=== PATIENT | male | born 1995 | race Caucasian/White ===

== ENCOUNTER 2019-08-15 06:58 | Emergency (ER) | payer BC, OTHER ==
[~2019-08-15] VITALS: Ht 182.9 cm; Wt 68.0 kg
[2019-08-15 07:17] VITALS: BP 134/61
--- NOTE | 2019-08-15 07:22 | NUR ---
PT AMB TO BED 9 WITH STEADY GAIT
--- NOTE | 2019-08-15 07:27 | NUR ---
C/O ANXIETY AFTER USING NEW WEED PEN YESTERDAY FOR HIS BIRTHDAY. PT STATES HE USUALLY SMOKES WEED BUT TYPICALLY DOESNT HAVE ANXIETY AFFTER. PT STATES HE FEELS LIKE HE IS HAVING PALPATIONS. HR 77. RR EVEN AND UNLABORED. PT ALERT AND AWAKE. VS STABLE. DENIES PMH
--- NOTE | 2019-08-15 07:30 | NUR ---
DR TAYLOR AT BEDSIDE
--- NOTE | 2019-08-15 07:48 | NUR ---
Patient discharged with v/s stable. Written and verbal after care instructions given and explained. Patient verbalized understanding. Ambulatory with steady gait. All questions addressed prior to discharge. Advised to follow up with PMD.
== END 2019-08-15 07:48 | disposition home or self-care (01) ==
LOC: MED 06:58
DX: F41.9 Anxiety disorder, unspecified (principal); F12.90 Cannabis use, unspecified, uncomplicated; F17.200 Nicotine dependence, unspecified, uncomplicated
CPT/HCPCS: 99281

== ENCOUNTER 2019-08-16 01:36 | Emergency (ER) | payer OTHER ==
[~2019-08-16] VITALS: Ht 172.7 cm; Wt 81.6 kg
[2019-08-16 01:45] VITALS: BP 126/76
--- NOTE | 2019-08-16 01:45 | NUR ---
PT TAKEN TO BED 7
--- NOTE | 2019-08-16 02:01 | NUR ---
24 Y/O M C/O ANIXETY AFTER SMOKING MARIJUANA ON SATURDAY. PT STATED HE STARTED SMOKING MARIJUANA LAST YEAR. PT HAS BEEN HAVING PANIC EPISODES AND ANXIETY SINCE SMOKING A "PEN" ON SATURDAY. LUNG SOUNDS CLEAR TO AUSCULATION. ABD SOFT, NON TENDER. VSS. PMH: NONE ALLERIGES: NKA
--- NOTE | 2019-08-16 02:03 | NUR ---
Dr. Wynn examining patient.
[2019-08-16] MEDS ORDERED: LORazepam 2 MG/ML VIAL IM ONE (02:05)
[2019-08-16 02:50] LABS: BARBITURATE, URINE NEGATIVE ng/ml (NEG <=200); BENZODIAZEPINE, URINE NEGATIVE ng/mL (NEG <=200); CANNABINOID, URINE POSITIVE ng/mL (NEG <=50); COCAINE, URINE NEGATIVE ng/mL (NEG <=300); OPIATE, URINE NEGATIVE ng/mL (NEG <=2000); PHENCYCLIDINE SCREEN,URINE NEGATIVE ng/mL (NEG <=25)
[2019-08-16 03:38] VITALS: BP 126/76
--- NOTE | 2019-08-16 03:38 | NUR ---
Patient discharged with v/s stable. Written and verbal after care instructions given and explained. Patient alert, oriented and verbalized understanding of instructions. Ambulatory with steady gait. All questions addressed prior to discharge. ID band removed. Patient advised to follow up with PMD. Rx of DIPHENHYDRAMINE HYDROCHLORIDE given. Patient educated on indication of medication including possible reaction and side effects. Opportunity to ask questions provided and answered.
== END 2019-08-16 03:38 | disposition home or self-care (01) ==
LOC: MED 01:36
DX: F41.9 Anxiety disorder, unspecified (principal); F12.90 Cannabis use, unspecified, uncomplicated; G47.9 Sleep disorder, unspecified; Z71.6 Tobacco abuse counseling
CPT/HCPCS: 80305; 81002; 96372; 99283; J2060

== ENCOUNTER 2021-11-23 11:45 | Emergency (ER) | payer OTHER ==
[~2021-11-23] VITALS: Ht 182.9 cm; Wt 69.4 kg
[2021-11-23 12:00] VITALS: BP 122/77
--- NOTE | 2021-11-23 12:05 | NUR ---
PATIENT AMBULATED WITH CRUTCHES TO BED 6
--- NOTE | 2021-11-23 12:28 | NUR ---
X-RAY AT BEDSIDE.
--- NOTE | 2021-11-23 13:03 | NUR ---
26 y/o male bib self with c/o right foot pain. Patient was skateboarding, fell and hurt his ankle. Patient is not able to bear weight on extremity d/t pain and is currently ambulating with crutches. Patient has positive pedal pulses, has movement and sensation to bilateral feet. Patients right ankle is swollen. Medical History: Denies NKDA
--- NOTE | 2021-11-23 13:15 | NUR ---
EJN Zarate evaluating patient at bedside.
[2021-11-23] MEDS ORDERED: NAPR-1704 PO (13:24)
--- NOTE | 2021-11-23 13:38 | NUR ---
APPLIED X1 3 INCH LENORA WRAP TO THE RIGHT ANKLE. +CMS BEFORE/AFTER. PT DID NOT COMPLAIN OF ANY PAIN OR DISCOMFORT AT THIS TIME. PA NOTIFIED.
[2021-11-23 14:10] VITALS: BP 127/75
== END 2021-11-23 14:10 | disposition home or self-care (01) ==
LOC: MED 11:45
DX: S93.401A Sprain of unspecified ligament of right ankle, initial encounter (principal); Z79.899 Other long term (current) drug therapy; X58.XXXA Exposure to other specified factors, initial encounter; Y93.89 Activity, other specified; Y92.89 Other specified places as the place of occurrence of the external cause; Y99.8 Other external cause status
CPT/HCPCS: 73610; 73630; 99284